=== PATIENT | male | born 1965 | race African-American/Black ===

== ENCOUNTER 2017-05-23 03:38 | Emergency (ER) | payer OTHER ==
[~2017-05-23] VITALS: Ht 185.4 cm; Wt 106.0 kg
[2017-05-23 05:14] VITALS: BP 152/89
== END 2017-05-23 05:15 ==
LOC: EME 03:38
PROC: 0HQKXZZ Repair Right Lower Leg Skin, External Approach (ICD-10-PCS; principal; 2017-05-23)
DX: S81.811A Laceration without foreign body, right lower leg, initial encounter (principal); W22.09XA Striking against other stationary object, initial encounter; Y93.84 Activity, sleeping; Y92.143 Cell of prison as the place of occurrence of the external cause
CPT/HCPCS: 73590; 99281; 99284